=== PATIENT | male | born 1950 | race Caucasian/White ===

== ENCOUNTER 2016-11-22 10:32 | Outpatient (CLI) | payer BC ==
[2016-11-22 12:05] LABS: #Basophils 0.1 thou/uL (0.0-0.2); #Eosinphils 0.3 thou/uL (0.0-0.7); #Lymphocytes 3.1 thou/uL (1.20-3.40); #Neutrophils 5.5 thou/uL (1.40-6.50); %Eosinophils 3.4 % (0.0-10.0); Hematocrit 42.3 % (42.0-52.0); Red Blood Cell (RBC) Count 4.67 mill/uL (4.70-6.10)
[2016-11-22 12:12] LABS: ALT (SGPT) 20 U/L (0-55); AST (SGOT) 17 U/L (5-34); Alkaline Phosphatase 61 U/L (40-150); Anion Gap 12 mmol/L (10-20); BUN (Urea Nitrogen) 19 mg/dL (8.4-25.7); Bilirubin, Total 0.4 mg/dL (0.2-1.2); Calc. Creatinine Clearance 0 mL/min (70-130); Calcium 9.2 mg/dL (7.8-10.44); Carbon Dioxide 30 mmol/L (23-31); Chloride 105 mmol/L (98-107); Estimated GFR-MDRD 59; Globulin 2.7 g/dL (2.4-3.5); Protein, Total 6.7 g/dL (5.8-8.1)
== END 2016-11-22 10:33 ==
LOC: HPCALD 10:32
PROVIDERS: ATTEND Family Medicine
DX: R53.83 Other fatigue (principal)
CPT/HCPCS: 36415; 80053; 84403; 84443; 85025

== ENCOUNTER 2017-05-26 10:19 | Outpatient (CLI) | payer BC, MEDICARE ==
[2017-05-26 10:41] LABS: #Basophils 0.1 thou/uL (0.0-0.2); #Eosinphils 0.4 thou/uL (0.0-0.7); #Lymphocytes 2.9 thou/uL (1.20-3.40); #Monocytes 1.1 thou/uL (0.11-0.59); #Neutrophils 6.6 thou/uL (1.40-6.50); %Basophils 0.8 % (0.0-1.0); %Eosinophils 3.6 % (0.0-10.0); %Monocytes 9.8 % (0.0-10.0); %Neutrophils 59.8 % (42.0-75.0); Mean Corpuscular HGB CONC 34.5 g/dL (32.0-36.0); Mean Corpuscular Hemoglobin 31.6 pg (27.0-31.0); Mean Corpuscular Volume 91.7 fl (80.0-94.0); Mean Platelet Volume 6.6 fL (7.4-10.4); Platelet Count 196 thou/uL (130-400); RBC Distribution Width 12.6 % (11.5-14.5); Red Blood Cell (RBC) Count 4.43 mill/uL (4.70-6.10); White Blood Cell (WBC) Count 11.1 thou/uL (4.8-10.8)
[2017-05-26 10:55] LABS: ALT (SGPT) 25 U/L (8-55); AST (SGOT) 21 U/L (5-34); Albumin 4.4 g/dL (3.4-4.8); Alkaline Phosphatase 68 U/L (40-150); Anion Gap 14 mmol/L (10-20); BUN (Urea Nitrogen) 22 mg/dL (8.4-25.7); Bilirubin, Total 0.5 mg/dL (0.2-1.2); Calc. Creatinine Clearance 0 mL/min (70-130); Calcium 9.5 mg/dL (7.8-10.44); Carbon Dioxide 29 mmol/L (23-31); Cardiac Risk 4.1 (Less than 4.5); Chloride 103 mmol/L (98-107); Cholesterol 120 mg/dl (< 200 Desired); Estimated GFR-MDRD 52; Globulin 2.8 g/dL (2.4-3.5); Glucose 98 mg/dL (80-115); HDL Cholesterol 29 mg/dL (>60 Neg Risk); LDL Cholesterol, Calculated 67 mg/dL; Protein, Total 7.2 g/dL (5.8-8.1); Sodium 142 mmol/L (136-145); Triglycerides 122 mg/dL (Less than 150)
== END 2017-05-26 10:20 | disposition home or self-care (01) ==
LOC: HPCALD 10:19
PROVIDERS: ATTEND Family Medicine
DX: Z12.5 Encounter for screening for malignant neoplasm of prostate (principal); E78.5 Hyperlipidemia, unspecified; I10 Essential (primary) hypertension
CPT/HCPCS: 36415; 80053; 80061; 85025; G0103

== ENCOUNTER 2020-11-22 21:57 | Emergency (ER) | payer BC, MEDICARE ==
[2020-11-22] MEDS ORDERED: TETANUS, DIPHTHERIA TOX,ADULT (TDVAX) 0.5 ML VIAL IM ONE (22:24)
--- NOTE | 2020-11-22 22:40 | RAD ---
Exam:Right foot 3 views HISTORY: Trauma. Pain. COMPARISON: None FINDINGS: Lisfranc alignment is maintained. Joint spaces are preserved. No fracture, cortical irregul arity or periosteal reaction IMPRESSION: No fracture
[2020-11-22] MEDS ORDERED: Lidocaine 1% w/Epinephrine 1:100K 20 ML VIAL ONE (22:43)
[2020-11-22] MEDS ORDERED: Bacitracin 1 PK ONE (22:56)
[2020-11-22] MEDS ORDERED: Amoxicillin/Potassium Clav 875 MG TAB ONE (23:00)
== END 2020-11-22 23:05 | disposition home or self-care (01) ==
LOC: BURERS 21:57
DX: S91.311A Laceration without foreign body, right foot, initial encounter (principal); G62.9 Polyneuropathy, unspecified; I10 Essential (primary) hypertension; E78.00 Pure hypercholesterolemia, unspecified; F17.210 Nicotine dependence, cigarettes, uncomplicated; Z79.899 Other long term (current) drug therapy; W26.0XXA Contact with knife, initial encounter
CPT/HCPCS: 12001; 90471; 90714

== ENCOUNTER 2021-07-26 06:53 | Emergency (ER) | payer BC, MEDICARE, OTHER ==
[2021-07-26] MEDS ORDERED: Piperacillin/Tazobactam 4.5 GM VIAL ONE (07:00)
[2021-07-26] MEDS ORDERED: Fentanyl 100 MCG/2 ML VIAL ONE (07:06)
[2021-07-26] MEDS ORDERED: Midazolam HCl 5 mg/ml Vial ONE ×2 (07:09→07:18)
[2021-07-26 07:17] LABS: ALT (SGPT) 28 U/L (8-55); AST (SGOT) 34 U/L (5-34); Albumin 3.2 g/dL (3.4-4.8); Alkaline Phosphatase 77 U/L (40-110); Anion Gap 21 mmol/L (10-20); BUN (Urea Nitrogen) 12 mg/dL (8.4-25.7); Bilirubin, Total 0.3 mg/dL (0.2-1.2); Calc. Creatinine Clearance 0 mL/min (70-130); Calcium 9.8 mg/dL (7.8-10.44); Carbon Dioxide 17 mmol/L (23-31); Chloride 107 mmol/L (98-107); Globulin 2.5 g/dL (2.4-3.5); Glucose 248 mg/dL (80-115); Potassium 4.4 mmol/L (3.5-5.1); Protein, Total 5.7 g/dL (5.8-8.1); Sodium 141 mmol/L (136-145)
[2021-07-26 07:18] LABS: CK (CPK) 244 U/L (30-200)
[2021-07-26 07:19] LABS: Hemoglobin 13.2 g/dL (14.0-18.0); Mean Corpuscular HGB CONC 32.8 g/dL (32.0-36.0); Mean Corpuscular Volume 94.5 fL (78.0-98.0); Mean Platelet Volume 7.5 fL (7.4-10.4); Platelet Count 148 thou/uL (130-400); RBC Distribution Width 14.5 % (11.5-14.5); Red Blood Cell (RBC) Count 4.25 mill/uL (4.70-6.10); White Blood Cell (WBC) Count 21.1 thou/uL (4.8-10.8)
[2021-07-26 07:20] LABS: INR-International Normal Ratio 1.3; Prothrombin Time 15.9 sec (12.0-14.7)
[2021-07-26 07:21] LABS: PTT 43.9 sec (22.9-36.1)
[2021-07-26 07:28] LABS: Lactic Acid 8.7 mmol/L (0.5-2.2)
[2021-07-26 07:30] LABS: Troponin I 0.242 ng/mL (< 0.028)
[2021-07-26 07:33] LABS: CKMB 9.3 ng/mL (0-6.6)
[2021-07-26 07:35] LABS: Bilirubin Negative (Negative); Blood, Urine Moderate (Negative); Clarity Hazy (Clear); Glucose, Urine (Dipstick) 100 mg/dL (Negative); Ketone, Urine Negative (Negative); Leukocyte Negative (Negative); Nitrite Negative (Negative); Protein, Urine (Dipstick) > or equal to 300 mg/dL (Neg-Trace); Specific Gravity, Urine 1.025 (1.005-1.030); Urobilinogen 0.2 mg/dL (Less than 2)
[2021-07-26 07:39] LABS: Lipase 117 U/L (8-78)
[2021-07-26 07:43] LABS: MDiff Complete? YES
[2021-07-26 07:44] LABS: Band 3 % (5-11); Lymphocytes 50 % (21-51); Monocytes 3 % (0-10); Neutrophil 34 % (42-75); RBC Morphology Normal; Reactive Lymphocytes 10 % (0-10)
[2021-07-26 07:49] LABS: RBC/HPF Greater than 50 HPF (0-3); WBC/HPF Greater Than 50 HPF (0-3)
[2021-07-26 07:50] LABS: Sperm/HPF 3+ HPF (None Seen); Squamous Epithelial 0-3 HPF (0-3)
[2021-07-26 07:57] LABS: D-Dimer Test Less than 0.27 *mcg/mL (0.27-0.43)
[2021-07-26] MEDS ORDERED: Heparin 25,000 units/D5W 500 ML ONE (08:12)
[2021-07-26 08:29] LABS: SARS-CoV-2 NAA Rapid Test Not Detected (NotDetected)
[2021-07-26] MEDS ORDERED: Norepinephrine 4 MG/4 ML VIAL ONE (08:58)
== END 2021-07-26 08:00 | disposition short-term general hospital (02) ==
LOC: BURERS 06:53
DX: A41.9 Sepsis, unspecified organism (principal); I46.9 Cardiac arrest, cause unspecified; J18.9 Pneumonia, unspecified organism; Z20.822 Contact with and (suspected) exposure to COVID-19; I10 Essential (primary) hypertension; E78.5 Hyperlipidemia, unspecified; F17.210 Nicotine dependence, cigarettes, uncomplicated
CPT/HCPCS: 51702; 71045; 80053; 81003; 81015; 82550; 82553; 83605; 83690; 84484; 85025; 85379; 85610; 85730; 87040; 93005; 94760; 96365; 96368; 96375; J1644; J2250; J2543; J3010; U0002